=== PATIENT | male | born 1955 | race Caucasian/White ===

== ENCOUNTER 2018-11-28 06:22 | Day surgery (SDC) | payer OTHER ==
[2018-11-28] MEDS ORDERED: LIDOCAINE 2% (SDV) 5 ML INJ (07:32)
[2018-11-28] MEDS ORDERED: PROPOFOL 40 ML (07:32)
== END 2018-11-28 16:00 | disposition home or self-care (01) ==
LOC: GIL 06:22
DX: Z12.11 Encounter for screening for malignant neoplasm of colon (principal); Z53.8 Procedure and treatment not carried out for other reasons